=== PATIENT | male | born 1935 | race African-American/Black ===

== ENCOUNTER 2018-04-30 19:24 | Emergency (ER) | payer MEDICARE ==
[~2018-04-30] VITALS: Ht 190.5 cm; Wt 81.8 kg
[2018-04-30 19:31] VITALS: BP 145/76; PULSE 110; RESP 18; TEMP 99.9; O2SAT 96
[2018-04-30] MEDS ORDERED: ACETAMINOPHEN 325 MG TAB PO ONE (19:45)
--- NOTE | 2018-04-30 19:48 | PD ---
HPI Chief Complaint: Fever Time Seen by Provider: 19:31 Travel History International Travel<30 days: No Contact w/Intl Traveler<30days: No Traveled to known affect area: No History of Present Illness HPI 83-year-old male who lives in [place] who is out here for a birthday constitution party has been altered this afternoon per his family. The patient has had a fever. Patient denies any other concurrent complaints at this time. He states he does have metastatic pancreatic cancer and is not wanting chemotherapy at this time. He states he is not on hospice care. He states that he would like to talk with his who knows his history better. History is limited on initial exam. PFSH Past Medical History Cancer: Yes (stage IV pancreatic cancer, prostate cancer) COPD: Yes Hypertension: Yes Shingles: Yes Past Surgical History Appendectomy: Yes Other Surgery: Yes (port) Social History Alcohol Use: No Tobacco Use: No Substance Use: No Allergies-Medications (Allergen,Severity, Reaction): Coded Allergies: No Allergy Information Available (Unverified , 04/30/18) Review of Systems Except as stated in HPI: all other systems reviewed are Neg Physical Exam Exam Limitations: Poor Historian Narrative GENERAL: 83-year-old male in no apparent distress SKIN: Focused skin assessment warm/dry. HEAD: Atraumatic. Normocephalic. EYES: Pupils equal and round. No scleral icterus. No injection or drainage. ENT: No nasal bleeding or discharge. Mucous membranes pink and moist. NECK: Trachea midline. CARDIOVASCULAR: Regular rate and rhythm. RESPIRATORY: No accessory muscle use. Clear to auscultation. Breath sounds equal bilaterally. GASTROINTESTINAL: Abdomen soft, non-tender, nondistended. MUSCULOSKELETAL: No obvious deformities. No clubbing. No cyanosis. NEUROLOGICAL: Awake and alert. Motor grossly within normal limits. Normal speech. Data Data Last Documented VS Vital Signs Date Time Temp Pulse Resp B/P (MAP) Pulse Ox O2 Delivery O2 Flow Rate FiO2 04/30/18 20:46 98.5 04/30/18 19:31 110 18 145/76 (99) 96 Orders Orders Electrocardiogram (04/30/18 19:42) Complete Blood Count With Diff (04/30/18 19:42) Comprehensive Metabolic Panel (04/30/18 19:42) Prothrombin Time / Inr (Pt) (04/30/18 19:42) Act Partial Throm Time (Ptt) (04/30/18 19:42) Lactic Acid Sepsis Protocol (04/30/18 19:42) Magnesium (Mg) (04/30/18:42) Phosphorus (Po4) (04/30/18 19:42) Lipase (04/30/18 19:42) Ckmb (Isoenzyme) Profile (04/30/18:42) Troponin I (04/30/18:42) Urinalysis - C+S If Indicated (04/30/18 19:42) Blood Culture (04/30/18:42) Chest, Single Ap (04/30/18:42) Ecg Monitoring (04/30/18:42) Iv Access Insert/Monitor (04/30/18:) Oximetry (04/30/18:42) Acetaminophen (Tylenol) (04/30/18 19:45) Ct Brain W/O Iv Contrast(Rout) (04/30/18:42) Ed Discharge Order (04/30/18 21:48) Labs Laboratory Tests Test 04/30/18 19:45 04/30/18 21:00 White Blood Count 8.7 TH/MM3 Red Blood Count 3.63 MIL/MM3 Hemoglobin 11.4 GM/DL Hematocrit 34.2 % Mean Corpuscular Volume 94.2 FL Mean Corpuscular Hemoglobin 31.4 PG Mean Corpuscular Hemoglobin Concent 33.3 % Red Cell Distribution Width 13.4 % Platelet Count 197 TH/MM3 Mean Platelet Volume 8.6 FL Neutrophils (%) (Auto) 86.9 % Lymphocytes (%) (Auto) 3.8 % Monocytes (%) (Auto) 9.2 % Eosinophils (%) (Auto) 0.0 % Basophils (%) (Auto) 0.1 % Neutrophils # (Auto) 7.6 TH/MM3 Lymphocytes # (Auto) 0.3 TH/MM3 Monocytes # (Auto) 0.8 TH/MM3 Eosinophils # (Auto) 0.0 TH/MM3 Basophils # (Auto) 0.0 TH/MM3 CBC Comment DIFF FINAL Differential Comment Prothrombin Time 12.0 SEC Prothromb Time International Ratio 1.2 RATIO Activated Partial Thromboplast Time 28.1 SEC Blood Urea Nitrogen 14 MG/DL Creatinine 1.38 MG/DL Random Glucose 129 MG/DL Total Protein 7.6 GM/DL Albumin 3.2 GM/DL Calcium Level 7.9 MG/DL Phosphorus Level 2.1 MG/DL Magnesium Level 1.8 MG/DL Alkaline Phosphatase 165 U/L Aspartate Amino Transf (AST/SGOT) 24 U/L Alanine Aminotransferase (ALT/SGPT) 17 U/L Total Bilirubin 0.4 MG/DL Sodium Level 135 MEQ/L Potassium Level 3.7 MEQ/L Chloride Level 102 MEQ/L Carbon Dioxide Level 23.5 MEQ/L Anion Gap 10 MEQ/L Estimat Glomerular Filtration Rate 59 ML/MIN Lactic Acid Level 1.9 mmol/L Total Creatine Kinase 85 U/L Troponin I LESS THAN 0.02 NG/ML Lipase 73 U/L Urine Color YELLOW Urine Turbidity CLEAR Urine pH 5.0 Urine Specific [place] 1.017 Urine Protein NEG mg/dL Urine Glucose (UA) NEG mg/dL Urine Ketones NEG mg/dL Urine Occult Blood SMALL Urine Nitrite NEG Urine Bilirubin NEG Urine Urobilinogen LESS THAN 2 mg/dL Urine Leukocyte Esterase NEG Urine RBC LESS THAN 1 /hpf Urine WBC 1 /hpf Urine Mucus FEW /lpf Microscopic Urinalysis Comment CATH-CULT NOT IND MDM Medical Decision Making Medical Screen Exam Complete: Yes Emergency Medical Condition: Yes Medical Record Reviewed: Yes (Past history confirmed) Interpretation(s) CBC & BMP Diagram 04/30/18 19:45 Total Protein 7.6, Albumin 3.2 L, Calcium Level 7.9 L, Phosphorus Level 2.1 L, Magnesium Level 1.8, Alkaline Phosphatase 165 H, Aspartate Amino Transf (AST/ SGOT) 24, Alanine Aminotransferase (ALT/SGPT) 17, Total Bilirubin 0.4 Last [address] 04/30/181941 Signed Impressions: CONCLUSION: No evidence of acute intracranial pathology. Chronic ischemic changes as above. Diffuse atrophy most severe in the anterior left temporal lobe Chest X-Ray 04/30/181941 Signed Impressions: CONCLUSION: Cardiomegaly. There is no evidence of pneumonia. Possible small left effusion Differential Diagnosis UTI, pneumonia, electrolyte abnormality, sepsis, acute renal failure, intracranial Narrative Course Will check blood work, urinalysis, imaging and reevaluate. and daughter arrived at bedside and states that patient has a living will and has a DO NOT RESUSCITATE. They state that they had not talked with any hospice team and they would like to do that near their home area if they do. At this time they would like to have workup for his acute change. Labs, imaging, urinalysis showed no emergent findings. Lengthy discussion with patient and family and offered observation to monitor blood cultures given port and for further workup of possible altered mental status with history of TIA. Patient states he is not wanting to stay in the hospital and wants to go home to where he lives and he will discuss hospice with his primary doctor. He understands I cannot fully rule out sepsis or stroke. Patient denies any new complaints, all questions answered. Patient knows that follow up is incumbent on them and to return to the emergency room immediately if new or worsening symptoms develop. Patient given strict return precautions, agrees to further workup as an outpatient. Diagnosis Primary Impression: Fever Qualified Codes: R50.9 - Fever, unspecified Additional Impression: Weakness Patient Instructions: General Instructions Additional Instructions: follow with primary thursday, return as needed, tylenol as needed for fever Med/Other Pt SpecificInfo: No Change to Meds Disposition: 01 DISCHARGE HOME Condition: Stable Blessing Dorsey MD Apr 30, 2018 19:48
[2018-04-30 20:07] LABS: AUTOMATED NEUTROPHIL # 7.6 TH/MM3 (1.8-7.7); BASOPHIL % 0.1 % (0.0-2.0); HEMATOCRIT 34.2 % (39.0-51.0); HEMOGLOBIN 11.4 GM/DL (13.0-17.0); LYMPH % 3.8 % (9.0-44.0); LYMPHOCYTE # 0.3 TH/MM3 (1.0-4.8); MEAN CELL VOLUME 94.2 FL (80.0-100.0); MEAN CORPUSCULAR HEMOGLOBIN 31.4 PG (27.0-34.0); MEAN CORPUSCULAR HGB CONC 33.3 % (32.0-36.0); MEAN PLATELET VOLUME 8.6 FL (7.0-11.0); MONO % 9.2 % (0.0-8.0); MONOCYTE # 0.8 TH/MM3 (0-0.9); NEUT % 86.9 % (16.0-70.0); PLATELET COUNT 197 TH/MM3 (150-450); RED BLOOD COUNT 3.63 MIL/MM3 (4.50-5.90); RED CELL DISTRIBUTION WIDTH 13.4 % (11.6-17.2); WHITE BLOOD COUNT 8.7 TH/MM3 (4.0-11.0)
[2018-04-30 20:17] LABS: INTERNATIONAL NORMALIZED RATIO 1.2 RATIO
[2018-04-30 20:34] LABS: ALBUMIN 3.2 GM/DL (3.4-5.0); AST (GOT) 24 U/L (15-37); BICARBONATE 23.5 MEQ/L (21.0-32.0); BLOOD UREA NITROGEN 14 MG/DL (7-18); CALCIUM 7.9 MG/DL (8.5-10.1); CHLORIDE 102 MEQ/L (98-107); CREATININE 1.38 MG/DL (0.60-1.30); GLOMERULAR FILTRATION RATE 59 ML/MIN (>89); GLUCOSE,RANDOM 129 MG/DL (74-106); MAGNESIUM 1.8 MG/DL (1.5-2.5); SODIUM (NA) 135 MEQ/L (136-145)
[2018-04-30 20:36] LABS: ALT (GPT) 17 U/L (12-78); PHOSPHORUS 2.1 MG/DL (2.5-4.9)
[2018-04-30 20:39] LABS: ALKALINE PHOSPHATASE 165 U/L (45-117); TOTAL BILIRUBIN ADULT 0.4 MG/DL (0.2-1.0); TOTAL PROTEIN 7.6 GM/DL (6.4-8.2); TROPONIN I LESS THAN 0.02 NG/ML (0.02-0.05)
[2018-04-30 20:46] VITALS: TEMP 98.5
--- NOTE | 2018-04-30 21:24 | RADRPT ---
EXAM DATE: 04/30/2018 8:42 PM EDT AGE/SEX: 83 years / Male INDICATIONS: Altered mental status. CLINICAL DATA: This is the patient's initial encounter. Patient reports that signs and symptoms have been present for 1 day and indicates a pain score of 5/10. MEDICAL/SURGICAL HISTORY: Carcinoma, prostatic. Carcinoma, pancreas. Appendectomy. RADIATION DOSE: 56.35 CTDI (mGy) COMPARISON: No prior exams available for comparison. TECHNIQUE: CT of the head without contrast. Using automated exposure control and adjustment of the mA and/or kV according to patient size, radiation dose was kept as low as reasonably achievable to ob tain optimal diagnostic quality images. DICOM format image data is available electronically for revi ew and comparison. FINDINGS: There is no evidence of acute cortical infarction, acute hemorrhage, mass effect or midline shift. Di ffuse cortical atrophy is present. There is extensive periventricular hypodensity compatible with chr onic ischemic change significantly more than expected for patient this age. Posterior fossa structure s are unremarkable. CONCLUSION: No evidence of acute intracranial pathology. Chronic ischemic changes as above. Diffuse atrophy most severe in the anterior left temporal lobe Electronically signed by: Baljinder Kerr MD 04/30/2018 9:22 PM EDT
[2018-04-30 21:30] LABS: BILIRUBIN, URINE NEG (NEG); BLOOD, URINE SMALL (NEG); GLUCOSE,URINE NEG (NEG); KETONE, URINE NEG (NEG); MUCUS URINE FEW /lpf (OCC); NITRITE,URINE NEG (NEG); URINE COLOR YELLOW (YELLW/STRAW); URINE LEUKOCYTE ESTERASE NEG (NEG)
--- NOTE | 2018-04-30 21:36 | RADRPT ---
EXAM DATE: 04/30/2018 8:00 PM EDT AGE/SEX: 83 years / Male INDICATIONS: Fever. Patient had a CT with contrast earlier today. CLINICAL DATA: This is the patient's initial encounter. Patient reports that signs and symptoms have been present for 1 day and indicates a pain score of 0/10. MEDICAL/SURGICAL HISTORY: None. None. COMPARISON: No prior exams available for comparison. FINDINGS: The cardiac silhouette is enlarged in transverse diameter. [id number]-f-Vuxo is in place via left subclav asher approach with its tip in the superior vena cava. The aorta is normal in caliber. There is no evid ence of aneurysm or dissection. There is pleural thickening versus small effusion on the left. There is no evidence of pneumonia. CONCLUSION: Cardiomegaly. There is no evidence of pneumonia. Possible small left effusion Electronically signed by: Baljinder Kerr MD 04/30/2018 9:35 PM EDT
--- NOTE | 2018-05-01 15:09 | EKG ---
Date Performed: 04/30/2018 Time Performed: 19:37:50 PTAGE: 83 years EKG: SINUS TACHYCARDIA WITH OCCASIONAL SUPRAVENTRICULAR PREMATURE COMPLEXES MODERATE VOLTAGE CRI TERIA FOR LVH, CONSIDER NORMAL VARIANT POSSIBLE ANTERIOR MYOCARDIAL INFARCTION ABNORMAL ECG NO PREVIOUS TRACING DOCTOR: Jayce Rodriguez Interpretating Date/Time 05/01/2018 15:07:31
== END 2018-04-30 22:29 | disposition home or self-care (01) ==
LOC: NEPE 19:24
DX: C25.9 Malignant neoplasm of pancreas, unspecified (principal); R53.1 Weakness; R00.0 Tachycardia, unspecified; R41.82 Altered mental status, unspecified
CPT/HCPCS: 70450; 71045; 80053; 81001; 82550; 83605; 83690; 83735; 84100; 84484; 85025; 85610; 85730; 87040; 93005; 99285